=== PATIENT | female | born 1985 | race Caucasian/White ===

== ENCOUNTER 2018-11-09 11:09 | Emergency (ER) | payer SELFPAY ==
[2018-11-09] MEDS ORDERED: OLANZapine 10 MG in Water For Injection, Sterile 2.1 ML IM ONE (11:21)
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
[2018-11-09] MEDS ORDERED: LORazepam 2 MG/ML SDV ONE (12:16)
[2018-11-09] MEDS ORDERED: LORazepam 2 MG/ML SDV IM ONE (12:16)
[2018-11-09 13:07] LABS: ACETAMINOPHEN <2.0 ug/mL
[2018-11-09 13:17] LABS: CHLORIDE,CL 106 mmol/L (98-107); SODIUM,NA 141 mmol/L (136-145)
--- NOTE | 2018-11-09 13:41 | CT ---
Indication: AMS- HALLUCINATIONS, ACUTE PSYCHOSIS Technique: CT of the head without contrast. Coronal and sagittal reformats. Bone and soft tissue algorithms. Comparison: No prior studies available for comparison at this institution. Findings: No acute intracranial hemorrhage or extra-axial collection. No evidence of acute cortical infarction. No mass effect or midline shift. Normal cerebral volume. The ventricles are normal in size, shape and contour. There is normal giron and white matter differentiation. The orbital contents are normal. Mastoid air cells are clear. No calvarial fractures. No lytic or sclerotic osseous lesions within the calvarium or skull base. Scalp and other imaged soft tissue structures are normal. Hypoplastic opacified right maxillary sinus. No evidence of right inferior orbital wall deformity to suggest silent sinus syndrome. Nasal septum deviated to the left with septal spur. Impression: 1. No acute intracranial abnormality. 2. Hypoplastic opacified right maxillary sinus with megan osteogenesis consistent with chronic sinus disease. Please correlate for sinus symptoms. Please note that all CT scans at this facility use dose modulation, iterative reconstruction, and/or weight-based dosing when appropriate to reduce radiation dose to as low as reasonably achievable. Dictated by Uri Sen MD @ Nov 09 2018 1:36PM Signed by Dr. Uri Sen @ Nov 09 2018 1:39PM
== END 2018-11-09 15:24 ==
LOC: MW.ED 11:09
DX: F23 Brief psychotic disorder (principal)
CPT/HCPCS: 36415; 70450; 80053; 80305; 81001; 83735; 84443; 84703; 85025; 93005; 96372; 99285; G0480; J2060; J3490